=== PATIENT | male | born 1970 ===

== ENCOUNTER 2016-06-28 19:31 | Observation (INO) ==
--- NOTE | 2016-06-28 20:25 | Hospitalist History & Physical ---
Assessment and Plan (1) Chest pain Status: Acute Assessment and plan: Plan for this patient 1. Admit patient to telemetry 2. Consult cardiology 3. Serial troponins 4. Fasting lipid profile 5. Check an A1c 6. Replete his potassium Current Visit: Yes History of Present Illness Chief complaint: Chest pain History of present illness: Mr. Abebe is a 46 year old male with no past medical history presents as transfer from [facility]. Patient works at night was going to bed at 3 AM. At that time he felt a squeezing sensation in his chest. He denies diaphoresis or exertional components but does report some shortness of breath. Seems to be more prominent when he lays down. Radiates to his back but not to his neck or arm. He got concerned thinking that he was having a heart attack. He later went to check things out at the [facility] and then was referred to our hospital for further evaluation. Medical,Surgical,& Family Hx - Medical History Medical History: noncontributory (None) - Surgical History Abdominal Surgeries: Surgical HX of: Appendectomy (1993) - Family History Family History: Reports;: Family Diabetes - Social History Smoking Status: Never smoker Frequency of Alcohol Use: None Type of Drug Use: None 12 point system: reviewed and no additional remarkable complaints except as stated Exam - Constitutional Vitals: Period Temp Pulse Resp BP Sys/Linares Pulse Ox Last 24 Hr 98.9 F-98.9 F 88-88 20-20 146-146/96-96 99 General appearance: over weight - Head Head exam: Present: normal inspection - Eye Eye exam: Present: EOMI Pupils: Present: CARLOTTA - ENT ENT exam: Present: normal exam - Neck Neck exam: Present: normal inspection - Respiratory Respiratory exam: Present: clear to auscultation bilaterally - Cardiovascular Cardiovascular exam: Present: regular rate and rhythm - GI/Abdominal GI/Abdominal exam: Present: normal bowel sounds - Back Exam Back exam: Present: normal inspection - Neurological Exam Neurological exam: Present: alert - Psychiatric Psychiatric exam: Present: normal affect, normal mood - Skin Skin exam: Present: normal color, warm Results - Labs Labs: Labs from [facility] displayed white count 9.4 hemoglobin 17.0 hematocrit 49.2 platelets 296 BUN 9 sodium 141 potassium 3.4 chloride 28.4 total protein 8.4 albumin 3.8 total bili 0.7 alk phos 97 SGOT 29 SGPT 47 glucose 125 calcium 8.9 chloride 104 creatinine 1.1 CPK 162 troponin 0.0 2 repeat troponin was 0.12 chest x-ray showed no core no acute cardiopulmonary disease appreciated an EKG was normal sinus rhythm
--- NOTE | 2016-06-28 20:41 | Emergency Department Note ---
IAlisa Emily, am scribing for, and in the presence of, Wyatt Rascon MD 20:03. Tarah Bass Hans, MD, personally performed the services described in this documentation, ascribed by Courtney Cuellar in my presence, and it is both accurate and complete . Arrival - Arrival Chief Complaint: Chest Pain Stated Complaint: Chest Pain ED Nursing Triage Note: Patient is a transfer from [facility] for further evaluation of chest pain and elevated troponin. Troponin was elevated at 0.12. Patient recieved nitro 0.4mg sublingual x2 and lovenox 120mg subcutaneous at facility. Does not complain of pain at this time. Denies, nausea , vomiting or shortness of breath. No medical history. Mode of Arrival: Ambulatory Limitations: No Limitations Source: Patient Time Seen by Provider: 06/28/16 19:44 - History of Present Illness HPI Narrative: Pt is a 46 y/o male who was transferred from [facility] to ED for further evaluation of elevated troponin (0.12) and non radiating chest pain. Pt received nitro 0.4mg sublingual x2 and lovenox 120mg subcutaneous at facility, but still having mild pain. Pt denies any pain at this time in ED. 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 He states the pain lasted an hour and he took a nap afterwards. Pt reports 2nd chest pain was driving home around 12: 30pm then dropping kids off at the house after a game, called work to tell them he was going to [facility], then drove to [facility]. He states when he lays down the pain is worse but sitting up straight takes some of the pain away. Pt denies sxs of nausea, vomiting or SOB. PMHx of appendectomy. 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 Onset (ago): hour(s) Consistency: constant Severity: mild Severity scale (1-10): 2 Quality: other (pressure, tightening) Review of System - Review of System 12 point system: reviewed and no additional remarkable complaints except as stated - Review of System Constitutional: Absent: chills, diaphoresis, fever, weakness Respiratory: Absent: cough, respiratory distress Cardiovascular: Present: chest pain. Absent: palpitations, edema Gastrointestinal: Absent: abdominal pain, nausea, vomiting Musculoskeletal: Absent: arm pain, back pain, leg pain, neck pain Skin: Absent: rash Neurological: Absent: headache Medical,Surgical,& Family Hx - Surgical History Abdominal Surgeries: Surgical HX of: Appendectomy (1993) - Social History Smoking Status: Never smoker Frequency of Alcohol Use: None Type of Drug Use: None Exam Vital Signs: Vital Signs Temperature 98.9 F 06/28/16 19:34 Pulse Rate 88 06/28/16 19:34 Respiratory Rate 20 06/28/16 19:34 Blood Pressure 146/96 06/28/16 19:34 O2 Sat by Pulse Oximetry 99 06/28/16 19:34 - General General appearance: alert, in no apparent distress - Head Head exam: Present: atraumatic, normocephalic - Eye Eye exam: Present: PERRL, EOMI - ENT ENT exam: Present: mucous membranes moist. Absent: mucous membranes dry - Neck Neck exam: Present: full ROM. Absent: tenderness - Chest Chest inspection: Present: symmetric chest wall rise. Absent: tenderness - Respiratory Respiratory exam: Present: normal lung sounds bilaterally. Absent: respiratory distress - Cardiovascular Cardiovascular exam: Present: regular rate, normal rhythm, normal heart sounds - Abdominal Exam Abdominal exam: Present: soft. Absent: distention, tenderness - Extremities Exam Extremities exam: Present: full ROM. Absent: tenderness, pedal edema - Neurological Exam Neurological exam: Present: alert, oriented X3, CN II-XII intact. Absent: motor sensory deficit - Psychiatric Psychiatric exam: Present: normal affect, normal mood - Skin Skin exam: Present: warm, dry Course Course Narrative: This patient was evaluated in the ER and his chart work from [place] was reviewed. He had increased troponin over 3 hours later and had symptoms that were consistent with unstable angina equivalent. He was treated with therapeutic Lovenox and nitroglycerin there and his chest pain resolved but he was transferred here for management. I discussed all this with the hospitalist on-call who will admit him for cardiology consultation to further evaluate his unstable angina. Disposition Clinical Impression: Chest pain Case discussed with: patient Disposition: Still a Patient Condition: Stable Instructions: Chest Pain (ED) Time of Disposition: 20:40
[2016-06-28] MEDS ORDERED: ACETAMINOPHEN 325 MG TABLET PO PRN (21:02)
[2016-06-28] MEDS ORDERED: ZALEPLON 5 MG CAPSULE PO PRN (21:02)
[2016-06-28] MEDS ORDERED: POTASSIUM CHLORIDE 20 MEQ TABLET PO ONE (21:11)
[2016-06-28 23:41] LABS: Risk Ratio 3.5; VLDL CHOLESTEROL 22.4 MG/DL
[2016-06-29] MEDS: NITROGLYCERIN 2% OINT 1 INCH/GM PACK TOP SCH ×3 (04:11→12:58)
[2016-06-29 05:29] LABS: Calcium 8.6 MG/DL (8.5-10.1); Osmolality,Calculated 284.8 MOS/KG (273-304); Potassium 4.7 MMOL/L (3.5-5.1)
--- NOTE | 2016-06-29 07:48 | EKG Report ---
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
[2016-06-29] MEDS ORDERED: PANTOPRAZOLE 40 MG TABLET PO SCH (10:00)
[2016-06-29 12:32] VITALS: BP 127/74
--- NOTE | 2016-06-29 13:39 | Cardiology Consult Note ---
Robin Bass Rachel RN, am scribing for, and in the presence of, Alex Douglas MD 13:39. Assessment and Plan - Time spent with patient Time spent with patient: Greater than 30 minutes (1) Chest pain Status: Acute Assessment and plan: This seems to be atypical in nature and without exertional components. Patient confirms that this is worsened after meals and laying down. Troponin has been negative 3 checks at our facility. However, at [facility] his troponin was noted to be 0.12. He is currently chest pain-free. EKG reveals normal sinus rhythm and is without any acute findings. We will continue to monitor troponin and EKG on telemetry. Echo and BNP have been ordered. PPI was added. Will keep patient n.p.o. schedule cardiac stress test. Current Visit: Yes (2) Former smoker Status: Resolved Assessment and plan: Patient reports that he quit smoking 18 years ago. Current Visit: Yes (3) Obesity Status: Chronic Assessment and plan: Counseled patient on the importance of weight loss. Current Visit: Yes History of Present Illness - Data of Consult Patient: new to practice Consult date: 06/29/16 Requesting Physician: Jitendra Hills - Consult Narrative Reason for consult: Chest pain History of present illness: Mr. Abebe is a 46 year old male patient without known coronary artery disease, not routinely followed by cardiology. Patient reports that he does not have a primary care provider. Patient was transferred from outside facility for further evaluation of chest discomfort. He has cardiac risk factors significant for former smoker (reports that he quit 18 years ago) and obesity. Patient denies any past medical history. He denies any family history of cardiac disease. Surgical history includes appendectomy. He reports that he has never had a cardiac stress test or left heart catheterization in the past. Patient was in his usual state of health until he began experiencing moderate chest discomfort yesterday after getting off work around 3 AM. He reports that after getting off work he went home and ate a ham sandwich then laid down approximately 1 hour later. His chest discomfort began after laying down. He describes this pain as a heaviness that radiated to his back and lasted approximately 1 hour. He rates this a 7 on a scale of 1-10. His pain eased up after sitting up. He also reports that his pain was actually made better with walking around the house. This was not associated with nausea, diaphoresis or shortness of breath. Again, this was not worsened with exertion. He did however report heart racing/palpitations. After his pain resolved approximately 1 hour later he then lay down and took a couple hour nap. After waking up, he had to take his kids to baseball practice. On his way home he experienced another episode of chest discomfort. He reports that this episode was less severe and rated it a 3-4 on a scale from 1-10. He describes the pain as a heaviness that radiated to his back. He tells me that this concerned him and he presented to [facility] [facility]. He was given nitroglycerin, and he reports that this slightly eased his pain but then when he laid down his chest pain returned. Troponin was noted to be 0.12 at outside facility. He was then transported to [place] [facility] for evaluation. Patient was admitted under hospitalist's service and housed on the telemetry floor. Cardiology has been consulted to further evaluate patient's chest pain. Patient reports that he works at the [employer] in [place]. He tells me that this job requires him to exert himself frequently. He denies any chest discomfort or shortness of breath with exertion. He also denies exercise intolerance and dyspnea on exertion. He denies fever, chills, cough, abdominal pain, nausea, vomiting, melena, orthopnea, PND and lower extremity swelling. Patient was seen on telemetry. Patient was sitting up in chair in no acute distress. Not requiring oxygen. He is currently chest pain-free. Troponin has been negative 3 checks to our facility. However, at [facility] troponin was noted to be 0.12. His EKG reveals normal sinus rhythm without any acute findings. We will continue to monitor EKG and troponin. Echo and BNP has been ordered. Will add PPI. We will continue to monitor patient on telemetry. Active Medications Acetaminophen (Tylenol Tab) 650 mg PO Q4H PRN PRN Reason: Temperature greater than 101F Enoxaparin Sodium (Lovenox) 40 mg SUBCUT Q24H PORTER Nitroglycerin (Nitro Bid Oint) 0.5 inch TOP Q6HR [facility] Last Admin: 06/29/16 05:55 Dose: Not Given Pantoprazole Sodium (Protonix Tab) 40 mg PO DAILY PORTER Zaleplon (Sonata) 5 mg PO BEDTIME PRN PRN Reason: Sleep CC: Foreign Remy MD - Home Medications and Allergies Home Medications: Home Medications Medication Instructions Recorded Confirmed Type No Known Home Medications [No 06/28/16 06/28/16 History Known Home Medications] Allergies/Adverse Reactions: Allergies Allergy/AdvReac Type Severity Reaction Status Date / Time No Known Allergies Allergy Unverified 06/28/16 20:38 - Constitutional Constitutional: Absent: chills, fatigue, fever(s), frequent falls, lethargy, malaise, weakness, weight gain, weight loss - Cardiovascular Cardiovascular: Present: as per HPI, chest pain at rest, radiating jaw, neck or arm pain, palpitations. Absent: chest pain with activity, claudication, diaphoresis, dyspnea, dyspnea on exertion, edema, lightheadedness, orthopnea, PND - Respiratory Respiratory: Absent: cough, dyspnea, hemoptysis, dyspnea on exertion, wheezing, snoring, pain on inspiration, change in phlegm color - Gastrointestinal Gastrointestinal: Present: dyspepsia, heartburn. Absent: abdominal pain, change in bowel habits, coffee ground emesis, constipation, cramping, diarrhea, hematemesis, hematochezia, loose stools, melena, nausea, vomiting - Neurological Neurological: Absent: abnormal gait, abnormal speech, behavioral changes, dizziness, frequent falls, syncope - Hematologic/Lymphatic Hematologic/Lymphatic: Absent: easy bleeding, easy bruising, lymphadenopathy Medical,Surgical,& Family Hx - Medical History Other: History of: Miscellaneous Medical Problems (Obesity) - Surgical History Abdominal Surgeries: Surgical HX of: Appendectomy (1993) - Family History Family History: Reports;: Family Diabetes Denies;: Family Heart Disease - Social History Smoking Status: Former smoker (Reports that he quit 18 years ago) Frequency of Alcohol Use: Occasionally Type of Drug Use: None Physical Examination Vital Signs Temp Pulse Resp BP Pulse Ox 98.9 F 88 20 146/96 99 06/28/16 19:34 06/28/16 19:34 06/28/16 19:34 06/28/16 19:34 06/28/16 19:34 General: Present: Appears Well, No Apparent Distress Neck: Present: Supple Neck, Midline Trachea, No JVD/HJR, No Masses, No Bruit, No Lymphadenopathy, No Thyromegaly Cardiac: Present: Reg Rate and Rhythm, Regular Rate, Regular Rhythm, S1/S2, No Murmur Lungs: Present: Normal Exam, Clear Ascult./Percussion, Normal Breath Sounds, No Wheeze, Rales, Rhonchi. Absent: Oxygen Abdomen: Present: Soft, Active Bowel Sounds, No Masses, No Pulsations/Bruits, Non-Tender. Absent: Firm, Distended Skin: Present: Clear. Absent: Rash, Suspicious Lesions, Ulceration Extremities: Present: Normal Gait, No Clubbing, No Cyanosis, No Edema, Normal Upper Extr. Pulses, Normal Lower Extr. Pulses Result/EKG - Labs CBC & BMP: 06/29/16 04:51 Lab Results: I have reviewed the past 24 hour labs Labs: Laboratory Results - last 24 hr 06/28/16 06/28/16 06/29/16 22:56 22:56 00:45 Sodium Potassium Chloride Carbon Dioxide Anion Gap BUN Creatinine GFR Calculation BUN/Creatinine Ratio Glucose Calculated Osmolality Calcium Troponin I < 0.015 < 0.015 Triglycerides 112 Cholesterol 224 H LDL Cholesterol 155.0 VLDL Cholesterol 22.4 HDL Cholesterol 64 H Heart Disease Risk Ratio 3.50 06/29/16 06/29/16 04:51 04:51 Sodium 144 Potassium 4.7 Chloride 108 H Carbon Dioxide 26 Anion Gap 14.7 BUN 11 Creatinine 0.80 GFR Calculation 141 BUN/Creatinine Ratio 13.00 Glucose 95 Calculated Osmolality 284.8 Calcium 8.6 Troponin I < 0.015 Triglycerides Cholesterol LDL Cholesterol VLDL Cholesterol HDL Cholesterol Heart Disease Risk Ratio - EKG EKG results: interpreted by me, sinus rhythm Specialty Discharge - Follow Up or Referrals I, Alex Douglas MD, personally performed the services described in this documentation, ascribed by Christine Kelly RN in my presence, and it is both accurate and complete [id number] .
--- NOTE | 2016-06-29 13:44 | Event Note ---
The patient's nuclear stress test showed no evidence of cardiac ischemia. I discussed the results with the patient. Based on the available data, I suspect his symptoms are more likely gastrointestinal in origin. I don't think any additional cardiac workup or treatment is required. A proton pump inhibitor has been added. If this does not control his symptoms I would consider a gastrointestinal workup. From my standpoint I think he could be discharged home.
--- NOTE | 2016-06-29 16:09 | Discharge Summary ---
Hospital Course - Hospital Course Hospital Course: This is a 46-year-old male with history significant for prior smoking and morbid obesity who presented with moderate chest discomfort that started yesterday after getting off work around 3 AM. He describes the discomfort as heaviness which was actually made better by walking. Denied nausea, shortness of breath onr diaphoresis. He reported having palpitations. The discomfort resolved after an hour and returned again. He then presented to [facility] emergency room where he was given nitroglycerin and this slightly eased his chest discomfort but when he laid down again, it returned. Troponin at the outside facility was slightly elevated at 0.12. Patient was transferred here at [place] for further evaluation. His troponin has been cycled 3 and remained negative. EKG revealed normal sinus rhythm with no acute ischemic changes. Patient was admitted undre the hospitalist service and Protonix added to his regimen. He was seen in consult by cardiology and was taken in for a nuclear stress test which did not reveal any reversible ischemia. Postprocedure, cardiology felt the patient's chest pain is noncardiac and most likely gastrointestinal related. Protonix has been added to his regimen. She will need to follow-up with gastroenterology as outpatient if his possibly GI related chest discomfort does not resolve with Protonix.. Patient was seen and examined by me today. His pain has long resolved. He was sitting up quietly in a chair with family members by the bedside. I have seriously counseled him about his morbid obesity. He will need to follow-up with his family doctor in a week. - Time spent with patient Time with patient DS: Greater than 30 minutes Diagnosis - Discharge Diagnosis (1) Non-cardiac chest pain Status: Acute Specialty Discharge - Follow Up or Referrals Discharge Plan - Discharge Data Disposition: Disch To Home/Self Care Condition at Discharge: Stable Discharge Diet: heart healthy Activity: resume usual activities as tolerated Hygiene: no restrictions Driving: no restrictions - Discharge Medications New Pantoprazole Tab [Protonix Tab] 40 mg PO DAILY #30 tablet Pravastatin [Pravachol] 20 mg PO BEDTIME #30 tablet - Follow Up or Referral - Forms/Instructions Forms: Acute Care Work/School Release Instructions: Chest Pain (ED) Exam - Constitutional Vitals: Period Temp Pulse Resp BP Sys/Linares Pulse Ox Last 24 Hr 97.2 F-98.5 F 16-92 16-20 114-168/64-102 95-99 General appearance: over weight - Head Head exam: Present: normocephalic, atraumatic - Eye Eye exam: Present: EOMI Pupils: Present: CARLOTTA - Neck Neck exam: Absent: lymphadenopathy, thyromegaly - Respiratory Respiratory exam: Present: clear to auscultation bilaterally - Cardiovascular Cardiovascular exam: Absent: carotid bruit, JVD, systolic murmur - GI/Abdominal GI/Abdominal exam: Present: normal bowel sounds, ascites - Extremities Exam Extremities exam: Absent: edema - Neurological Exam Neurological exam: Present: alert, oriented X3, CN II-XII intact, reflexes normal - Psychiatric Psychiatric exam: Present: normal affect, normal mood - Skin Skin exam: Present: normal color Discharge Results Procedures and tests throughout hospitalization: Pending Orders 06/29/16 09:58 NM jerrell perf SPECT rest or str Routine Labs on day of discharge: Labs from last 24 hours 06/29/16 06/29/16 06/29/16 10:02 04:51 04:51 Sodium 144 Potassium 4.7 Chloride 108 H Carbon Dioxide 26 Anion Gap 14.7 BUN 11 Creatinine 0.80 GFR Calculation 141 BUN/Creatinine Ratio 13.00 Glucose 95 Calculated Osmolality 284.8 Calcium 8.6 Troponin I < 0.015 B-Natriuretic Peptide 6 Triglycerides Cholesterol LDL Cholesterol VLDL Cholesterol HDL Cholesterol Heart Disease Risk Ratio 06/29/16 06/28/16 06/28/16 00:45 22:56 22:56 Sodium Potassium Chloride Carbon Dioxide Anion Gap BUN Creatinine GFR Calculation BUN/Creatinine Ratio Glucose Calculated Osmolality Calcium Troponin I < 0.015 < 0.015 B-Natriuretic Peptide Triglycerides 112 Cholesterol 224 H LDL Cholesterol 155.0 VLDL Cholesterol 22.4 HDL Cholesterol 64 H Heart Disease Risk Ratio 3.50 DS: Provider Date of admission: 06/28/16 21:02 Primary care physician: Jacinto Gtz MD Attending physician on admission: Foreign Remy MD Consults: Cardiology (Dr. Alex Douglas) Discharging clinician: Foreign Remy MD Expected date of discharge: 06/29/16
--- NOTE | 2016-06-29 17:27 | ECHO Report ---
Delonte Abebe Exam Date: 06/29/2016 10:05 Referring Physician: Technologist: Odalys Calderon RDCS Age: 46 Ht (in): Wt (lb): Gender: M Exam Location: [facility] Echo Indications: Chest pain, unspecified, Shortness of breath BP: / HR: Rhythm: Sinus Technical Quality: Technically difficult study IMPRESSIONS Technically difficult study. Left ventricular ejection fraction is estimated at 55 %. Trace tricuspid valve regurgitation. MEASUREMENTS (Male / Female) Normal Values 2D ECHO LV Diastolic Diameter PLAX 3.3 cm 4.2 - 5.9 / 3.9 - 5.3 cm LV Systolic Diameter PLAX 3.1 cm LV Fractional Shortening PLAX 7.3 % IVS Diastolic Thickness 1.1 cm 0.6 - 1.0 / 0.6 - 0.9 cm LVPW Diastolic Thickness 1.2 cm 0.6 - 1.0 / 0.6 - 0.9 cm RV Internal Dim ED PLAX 2.9 cm Aortic Root Diameter 3.0 cm LA Systolic Diameter LX 3.3 cm 3.0 - 4.0 / 2.7 - 3.8 cm DOPPLER TR Peak Velocity 239.0 cm/s TR Peak Gradient 22.8 mmHg FINDINGS Left Ventricle Normal left ventricular cavity size. Left ventricular ejection fraction is estimated at 55 %. Right Ventricle The right ventricle is normal in size and function. Right Atrium The right atrium is normal in size. Left Atrium The left atrium is normal in size. Mitral Valve Morphologically normal mitral valve without significant stenosis or prolapse. There is no mitral regurgitation. Aortic Valve Morphologically normal aortic valve without significant sclerosis or stenosis. There is no aortic regurgitation. Tricuspid Valve Morphologically normal tricuspid valve. Trace tricuspid valve regurgitation. Pulmonic Valve Morphologically normal pulmonic valve without significant stenosis. There is no pulmonic regurgitation. Pericardium Normal pericardium without effusion. Aorta Normal ascending aorta dimension. Alex Douglas (Electronically Signed) Final Date: 29 June 2016 17:26
[2016-06-29] MEDS ORDERED: ENOXAPARIN 40 MG/0.4 ML SYRINGE SUBCUT SCH (21:00)
--- NOTE | 2016-06-30 01:29 | Nuclear Medicine Report ---
NUCLEAR STRESS TEST DATE: 06/29/2016 The patient presented with chest pain symptoms concerning for angina and is undergoing a nuclear car [facility] ischemic screen at this time. He underwent a rest myocardial perfusion study after a 10 mCi do se of Technetium-99m bound to [place]. He then underwent a full Tanya protocol stress test, exerc ising for a total of 6 minutes and 50 seconds achieving a maximum heart rate of 155 beats per minute , which is 89% of his age-predicted maximum. During exercise, he had no clinical or EKG evidence of cardiac ischemia. Near peak exercise, he received 30 mCi of technetium-99m bound to [place]. Re peat myocardial perfusion imagining was performed. Comparison of the stress and rest myocardial per fusion images reveals no evidence of cardiac ischemia. There is uniform radiotracer uptake througho ut the left ventricular myocardium. Quantitative perfusion analysis calculates a summed stress scor e of 3, which is consistent with a low risk of significant cardiac ischemia. Quantitative gated karoline ges calculate a left ventricular ejection fraction of 70% with normal segmental wall motion in all r egions. IMPRESSION: 1. CLINICALLY AND ELECTRICALLY NEGATIVE MAXIMAL FULL TANYA PROTOCOL STRESS TEST. 2. THERE IS NO EVIDENCE OF SIGNIFICANT ISCHEMIA ON PERFUSION IMAGING. 3. THERE WAS NORMAL LEFT VENTRICULAR FUNCTION ON THIS STUDY. CONCLUSION: These results are most consistent with a low risk result. Procedure performed and interpreted at [facility] Department of Radiology.
== END 2016-06-29 16:40 | disposition home or self-care (01) ==
LOC: N.EDINP 19:31 → N.ED 19:31 → N.TELES 21:49
PROVIDERS: ADMIT Student in an Organized Health Care Education/Training Program; ATTEND Student in an Organized Health Care Education/Training Program